=== PATIENT | male | born 1955 | race Caucasian/White ===

== ENCOUNTER 2024-06-24 09:05 | Outpatient (CLI) | payer MEDICARE, OTHER, SELFPAY ==
--- NOTE | ~2024-06-24 | CT_ITS ---
EXAMINATION: CT lung screening DATE: 06/24/2024 09:18 INDICATION: Z87.891 - Personal history of nicotine dependence TECHNIQUE: Computed tomography (CT) of the chest was performed without intravenous contrast. Addition al 3D reconstructions utilizing coronal maximum intensity projection (MIP) were performed. Automated exposure control and iterative reconstruction technique were employed. The dose-length product was 17 1.77 mGy-cm. COMPARISON: None FINDINGS: Moderate emphysema with mild biapical pleural-parenchymal scarring. 2 mm right upper lobe nodule. 6 x 3 mm lenticular likely intrafissural lymph node along the right major fissure. No pneumonia, pulmona ry edema or pleural effusion. Heart size is normal. Atherosclerotic coronary artery calcific location . No pericardial effusion. Thoracic aorta is normal in caliber. Calcified left hilar and mediastinal lymph nodes consistent with old granulomatous disease. 1.5 similar hepatic cyst. A few splenic calcif ic lesions consistent with old granulomatous disease. Mild thoracic spondylosis with chronic mild sup erior endplate compression fracture at T8. IMPRESSION: 1. . Lung-RADS category 2: Benign appearance or behavior. Continue annual screening with noncontrast low-dose chest CT in 12 months. Reviewed, dictated and finalized at location B. [employer] IMPRESSION: 1. . Lung-RADS category 2: Benign appearance or behavior. Continue annual scree hugo with noncontrast low-dose chest CT in 12 months.
== END 2024-06-24 09:06 | disposition home or self-care (01) ==
LOC: MICIMG 09:07
PROVIDERS: PCP Specialist; Visit Provider Student in an Organized Health Care Education/Training Program
DX: Z12.2 Encounter for screening for malignant neoplasm of respiratory organs (principal); Z87.891 Personal history of nicotine dependence
CPT/HCPCS: 71271